=== PATIENT | female | born 1975 | race Caucasian/White ===

== ENCOUNTER 2016-07-22 18:46 | Inpatient (IN) | payer OTHER ==
--- NOTE | ~2016-07-22 | PN ---
Unit #: [id number] #: [id number] Patient: NATANAEL OLVERA [id number] [facility] [address] [place] [address] [id number] MR#: [id number] NAME: NATANAEL OLVERA ROOM: 73 Age: 40 Sex: F Admission Date: 07/22/2016 : 1975 Attending Physician: Bobby Ybarra M.D. Admitting Physician: Marcelo Li PROGRESS NOTES DATE 07/24/2016 SUBJECTIVE UPDATE This is a 40-year-old white female who comes into the hospital with issues of substance abuse and related detox. The patient reports today overall the symptoms are better. She still complains of feeling somewhat unsteady on her feet, and there is still a mild tremor noted in her hands, but she states her appetite is has been better and she did sleep somewhat better last night with the medication. The patient's mood also seems better. She is less depressed, anxious, continuing to deny any SI. Still having some mild complaints of headaches, aches and pains, and GI disturbance. Overall, the patient says all symptoms seem to be improving. Vital signs noted to have a slightly elevated blood pressure of 135/84 with a pulse of 70 and respiratory rate of 16. The patient compliant with care per staff. MENTAL STATUS EXAMINATION General Appearance: This is a moderately groomed white female, improving eye contact. Speech was clear and coherent with normal prosody with tremor in both hands still noted. Mood was "better, less depressed, anxious with a congruent affect." Thought process and content are grossly organized and linear, and overt psychosis. No SI or HI are reported or elicited. The patient's memory was grossly intact. Associations were normal. Cognitive functioning is at baseline. Insight and judgment are improving. Associations are normal. ASSESSMENT AND RECOMMENDATIONS Continue the patient's admission for safety and stabilization for ongoing detox issues. The patient appears to be showing good progress, and we will maintain the treatment program for now (1) __ disposition in the near future. The patient's progress is to be continued and maintained. Community resources discussed with the patient (2) ___, and she is to make determinations prior to discharge. Dictated by... Bobby Ybarra M.D. CAMILLA/joanna TD: 07/26/2016 09:52 Unit #: [id number] #: [id number] Patient: ANT OLVERABRIELLE JOB #: [id number] GEOV[facility]NA PROGRESS NOTES Page 1 of 1 X Bobby Ybarra MD PROGRESS NOTE
--- NOTE | ~2016-07-22 | DS ---
Unit #: [id number] #: [id number] Patient: NATANAEL OLVERA [id number] [place] [address] [id number] I MR#: [id number] NAME: NATANAEL OLVERA ROOM: [facility] Age: 40 Sex: F Admission Date: 07/22/2016 : 1975 Discharge Date: 07/25/2016 Attending Physician: Bobby Ybarra M.D. DISCHARGE SUMMARY REASON FOR ADMISSION Alcohol dependency and significant depression issues. DIAGNOSTIC STUDIES The patient had routine blood work done which included a CMP which showed glucose slightly low at 61 on admission and BUN of 6, and creatinine 0.5 respectively. AST was elevated at 117, ALT at 76 in keeping with her recent alcohol use. TSH elevated at 5.61, free T4 slightly low at 0.55. Beta HCG was negative. CBC was grossly within normal parameters with the exception of the MCV slightly elevated at 98.2. RPR was nonreactive. Urine toxicology was positive for benzodiazepines. Urinalysis was positive for trace leukocytes 0.2 urobilinogen, but no other signs of bacterial infection or abnormalities. HOSPITAL COURSE The patient was admitted for safety and stabilization for issues with alcohol dependency and major depression. The patient apparently in the original evaluation had made comments of a suicidal nature talking about just drinking herself to upon admission to the hospital and those rapidly resolved and there was no active SI during this entire admission. The patient was still complaining of depression but her focus is more on her alcohol use, apparently this had been going on for several years and was only escalating and she was feeling hopeless about it. The patient was placed on appropriate detox protocol and tolerated it well. She had symptoms of diaphoresis, tremors, restlessness, upset stomach, poor sleep, depression and anxiety, as well as aches and pains and restless legs in addition to others and all of these symptoms resolved over the hospitalization and she responded well to the treatment protocol. The patient had made mention of depression during her hospitalization but did not feel motivated for starting medications until the very last day when she was being detoxed and it was recommended that she follow up in IOP program to have that better managed as she was about to be discharged and was not appropriate to start a new medication at this point without the patient being under my care for additional followup and this can be tended to, of course, in the outpatient program under appropriate guidance and she agreed. The patient was given trazodone 100 mg at bedtime to aid with sleep for which she responded well in addition to the other detox medications but no other medications were started during this hospitalization. Overall, at the time of discharge, the patient was felt to have reached maximum Unit #: [id number] #: [id number] Patient: NATANAEL OLVERA benefit for admission. Plan for her to go home with family and follow up outpatient with IOP program and/or other community psych CD resources with sobriety encouraged. DISCHARGE DIAGNOSES Nash I Alcohol dependency with withdrawal. Major depressive disorder, moderate. PCOS. Nash II Nash III Nash IV Nash V DISCHARGE FOLLOW UP CARE Will be through the CD/IOP program at [facility] vs community resources. DISCHARGE MEDICATIONS None. CONDITION AT DISCHARGE Improving. PROGNOSIS Guarded given the patient's continued drinking and history of noncompliance. DIET AND ACTIVITY Diet is regular. Activity is as tolerated with sobriety encouraged. Dictated by... Bobby Ybarra M.D. CAMILLA/susan TD: 07/25/2016 12:39 JOB #: [id number] DISCHARGE SUMMARY Page 1 of 1 X Bobby Ybarra MD X DISCHARGE SUMMARY
--- NOTE | ~2016-07-22 | PA ---
Unit #: [id number] #: [id number] Patient: NATANAEL OLVERA [id number] [place] [address] [id number] Omer MR#: [id number] NAME: NATANAEL OLVERA ROOM: P173 Age: 40 Sex: F Admission Date: 07/22/2016 : 1975 Date of Assessment: 07/23/2016 Attending Physician: Bobby Ybarra M.D. Admitting Physician: Bobby Ybarra M.D. PSYCHIATRIC ASSESSMENT DATE OF SERVICE 07/23/2016. LOCATION [facility], room #173, bed #2. INFORMANTS The patient and chart both seem reliable. CHIEF COMPLAINT "I can't stop using alcohol before I kill myself." HISTORY OF PRESENT ILLNESS This is a 40-year-old white female with a longstanding history of alcohol dependency going back "many many years," who has never been to previous detox issues before. The patient reports now because of mounting issues in her life including the of family, loss of her children, but the family having to take care of them because of her continued substance abuse, unemployment etc. Overall, the patient denied any other substances of abuse on a regular basis, but has used amphetamines in the past. The patient was notably positive for vague SI when she was seen by initial evaluated in the emergency services and now is denying them, but does report significant issues with depression. The patient at this time open to care options and treatment and is reporting problems with low energy aches and pains, feeling nauseous for sleep, disruption of GI tract. No diarrhea or vomiting yet, tremors and diaphoresis. Staff reported she has been compliant with care thus far. No behavioral issues on the unit. PAST PSYCHIATRIC HISTORY Nothing to speak up. No previous psychiatric care inpatient around, no history of medications per patient. No history of true SI or suicidal actions. No history of HI. No history of psychosis. FAMILY HISTORY Significant for chemical dependency in both parents as well as brother who by overdose on fentanyl. SOCIAL HISTORY The patient is unemployed and single. Children currently in the care of her surviving brother. Support is limited. MEDICAL HISTORY Significant for PCOS which she has not being treated for. Unit #: [id number] #: [id number] Patient: NATANAEL OLVERA MEDICATION HISTORY None. ALLERGIES Include no known drug allergies. SUBSTANCE ABUSE HISTORY As noted above. No previous treatment inpatient around per patient. No history of significant withdrawal symptoms beyond shakes or tremors. No history of seizures and history of medical complications. MENTAL STATUS EXAMINATION General appearance is a limitedly groomed white female, appears older than stated age, fairly cooperative and responsive to the interview process with moderate eye contact. Speech was clear and coherent with normal prosody. Mood was dysphoric and depressed with a blunted affect. Thought process and content were grossly organized and linear. No overt evidence of psychosis. No active SI or HI at this time. The patient's memory was grossly intact. Associations were normal. Cognitive function was at baseline. She is alert and oriented x4. Insight and judgment are limited. ASSETS AND LIABILITIES Assets include, has 2 children as she was wanting to regain custody of and care for. Liabilities include continued substance abuse. No previous exposure with detox, unemployment, ongoing alcohol dependency. ADMITTING DIAGNOSES 1. Alcohol dependency with withdrawal. 2. Major depressive disorder, recurrent, moderate. 3. Polycystic ovary syndrome. PSYCHIATRIC PLAN To continue the patient's admission in the safe and secured environment for alcohol detox. The proper protocol in place as well as monitoring her mood and most likely substance related versus chronic major depressive issues per the patient's report, even though she has never had history of it before. She has had some severe depressive symptoms for over several years that include poor motivation, energy, and anhedonia, poor ADL management and hopelessness. Treatment goals will be resolution of these symptoms in a safe controlled environment. 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 Estimated length of stay approximately 5 days. Dictated by... Bobby Ybarra M.D. CAMILLA/moo TD: 07/23/2016 12:57 JOB #: [id number] Unit #: [id number] #: [id number] Patient: NATANAEL OLVERA PSYCHIATRIC ASSESSMENT Page 1 of 1 X Bobby Ybarra MD PSYCHIATRIC ASSESSMENT
--- NOTE | ~2016-07-22 | HP ---
Unit #: [id number] #: [id number] Patient: NATANAEL OLVERA [id number] [place] [address] [id number] I MR#: [id number] NAME: NATANAEL OLVERA ROOM: 73 Age: 40 Sex: F Admission Date: 07/22/2016 : 1975 Attending Physician: Bobby Ybarra M.D. Admitting Physician: Bobby Ybarra M.D. HISTORY AND PHYSICAL HISTORY OF PRESENT ILLNESS The patient is a 40-year-old female admitted to [facility] on 07/22/2016 for suicidal ideations and to detox from alcohol. PAST MEDICAL HISTORY PCOS PAST SURGICAL HISTORY The patient denies. SOCIAL HISTORY The patient is unemployed. She lives with her mother. She smokes one pack of cigarettes daily. She drinks alcohol daily and uses Adderall daily. FAMILY MEDICAL HISTORY Noncontributory. ALLERGIES No known drug allergies. CURRENT MEDICATIONS The patient is not on any home medications. REVIEW OF SYSTEMS CONSTITUTIONAL: No fever or chills. HEENT: Denies any sore throat, ear pain or runny nose. CARDIOVASCULAR: Denies chest pain, irregular heart rhythm or palpitations. CHEST: Denies shortness of breath or cough. No hemoptysis. GASTROINTESTINAL: Denies nausea, vomiting, diarrhea or chronic constipation. ENDOCRINE: Denies history of increased thirst or urination. No recent significant weight loss or gain. GENITOURINARY: Denies dysuria, frequency, or hematuria. SKIN: Denies any rashes. HEMATOLOGIC: Denies history of increased bleeding or bruising. MUSCULOSKELETAL: Denies any hot, swollen joints. No generalized muscle pain. NEUROLOGIC: Denies problems with vision or speech. No frequent, severe headaches. No numbness, tingling or weakness in any extremities. Denies loss of bladder or bowel control. Unit #: [id number] #: [id number] Patient: NATANAEL OLVERA PHYSICAL EXAM GENERAL: She is awake, alert and oriented in no acute distress. VITAL SIGNS: Temperature 98.4, heart rate 78, respiration 22, blood pressure 120/73. HEIGHT: 5'3". WEIGHT: 130 pounds. SKIN: Warm and dry without rash or lesion. HEENT: Normocephalic. TMs not viewed. Oral and nasal passages clear. Conjunctivae clear. PERRLA. EOMs intact. NECK: Supple without lymphadenopathy or thyromegaly. HEART: Regular rate and rhythm without murmur. LUNGS: Clear. ABDOMEN: Soft, nontender. : Not done. EXTREMITIES: No evidence of cyanosis, clubbing or edema. Moves all without focal deficit. NEUROLOGICAL: Grossly within normal limits. Cranial Nerves: II: Visual kang are intact. III, IV AND : Extraocular movements are intact. Pupils are equal, round and reactive to light. V: Facial sensation is grossly normal. VII: Facial movements and expression are normal. VIII: Auditory acuity grossly intact. IX, X: Uvula is midline. Phonation is normal. XI: Patient shrugs shoulders and turns head normally. XII: Tongue protrudes in the midline. Sensory and Motor Function: Sensory and motor sensation is grossly normal. Motor: moves all extremities well. IMPRESSION 1. Psychiatric admission. 2. Alcohol addiction. 3. PCOS. RECOMMENDATIONS Psychiatric per psychiatrist. MEDICAL: No contraindication to participate in facility activities. MEDICAL PROGNOSIS Good. MEDICAL CONDITION Stable. Dictated by... Bill Marie/adan TD: 07/24/2016 00:01 JOB #: [id number] Unit #: [id number] #: [id number] Patient: NATANAEL OLVERA HISTORY AND PHYSICAL Page 1 of 1 X RAYNE KEARNEY APRN HISTORY AND PHYSICAL
[2016-07-23 10:46] LABS: BASOPHIL% 0.4 % (0-2.5); EOSINOPHIL# 0.1 X10e3 (0-0.7); EOSINOPHIL% 1.6 % (0.0-7.0); HEMATOCRIT 42.3 % (35.0-45.0); HEMOGLOBIN 14.2 gm/dL (12.0-16.0); LYMPHOCYTE# 1.7 X10e3 (1.0-3.5); LYMPHOCYTE% 36.7 % (17.0-45.0); MEAN CELL VOLUME 98.2 FL (83-96); MEAN CORPUSCULAR HEMOGLOBIN 33.1 PG (28-34); MEAN CORPUSCULAR HGB CONC 33.7 g/dL (30-36); MEAN PLATELET VOLUME 7.8 FL (6.5-11.5); MONOCYTE# 0.5 X10e3 (0-1.0); NEUTROPHIL# 2.3 X10e3 (1.5-7.1); NEUTROPHIL% 50.3 % (40-75); PLATELET COUNT 167 X10e3 (140-420); RED CELL DISTRIBUTION WIDTH 13.8 % (11.0-15.5); WHITE BLOOD COUNT 4.6 X10e3 (4.0-10.5)
[2016-07-23 10:49] LABS: DIFF IND NO
[2016-07-23 11:24] LABS: THYROID STIMULATING HORMONE 5.61 uIU/ml (0.34-5.60)
[2016-07-23 11:30] LABS: FREE THYROXIN (T4) 0.55 ng/dL (0.58-1.64)
[2016-07-23 12:09] LABS: ALBUMIN SERUM 4.2 g/dL (3.5-5.0); BILIRUBIN,TOTAL 1.3 mg/dL (0.2-2.0); CALCIUM SERUM 9.6 mg/dL (8.4-10.2); CREATININE SERUM 0.5 mg/dL (0.6-1.4); GLOM FILT RATE Estimated 121.9 mL/min (>60); POTASSIUM 4.6 mmol/L (3.5-5.1); PROTEIN TOTAL SERUM 7.3 g/dL (6.0-8.3)
[2016-07-24 12:30] LABS: URINE APPEARANCE CLEAR; URINE BILIRUBIN NEG (NEG); URINE BLOOD NEG (NEG); URINE COLOR YELLOW; URINE GLUCOSE NEG (NEG); URINE KETONE NEG (NEG); URINE LEUKOCYTE ESTERASE TRACE (NEG); URINE NITRATE NEG (NEG); URINE PH 6.5 (5-8); URINE PROTEIN NEG (NEG); URINE SPECIFIC GRAVITY 1.005 (1.003-1.035); URINE UROBILINOGEN 0.2 MG/DL (NEG)
[2016-07-24 12:35] LABS: URINE BACTERIA AUWI NEG (NEGATIVE); URINE SQUAMOUS EPITHELIAL CELL NONE SEEN /[HPF]; UWBCS1 AUWI 0-2 (0-5)
[2016-07-24 12:45] LABS: AMPHETAMINE NEG (NEG); BARBITURATES NEG (NEG); BENZODIAZEPINES POS (NEG); COCAINE NEG (NEG); MARIJUANA NEG (NEG); OPIATES NEG (NEG); TRICYCLIC ANTIDEPRESSANTS NEG (NEG); U METHADONE NEG (NEG)
== END 2016-07-25 13:45 | disposition home or self-care (01) | DRG 897 ==
LOC: P1E 18:46
PROVIDERS: Psychiatry & Neurology Psychiatry
PROC: HZ2ZZZZ Detoxification Services for Substance Abuse Treatment (ICD-10-PCS; principal; 2016-07-22)
DX: F10.239 Alcohol dependence with withdrawal, unspecified (principal); F33.1 Major depressive disorder, recurrent, moderate; E28.2 Polycystic ovarian syndrome
CPT/HCPCS: 80053; 80307; 81003; 84439; 84443; 84703; 85025; 86592

== ENCOUNTER 2016-09-16 22:00 | Inpatient (IN) | payer OTHER ==
--- NOTE | ~2016-09-16 | PN ---
Unit #: [id number] #: [id number] Patient: NATANAEL OLVERA [id number] [facility] [address] [place] [address] [id number] I MR#: [id number] NAME: NATANAEL OLVERA ROOM: P207 Age: 41 Sex: F Admission Date: 09/17/2016 : 1975 Attending Physician: Em Casanova M.D. Admitting Physician: Em Casanova M.D. Primary Care Physician: Primary Care Physician Joahna AUSTIN PROGRESS NOTES DATE OF SERVICE: 09/23/2016 SUBJECTIVE Ms. Olvera is a 41-year-old white female, who was seen today and chart was reviewed and case was discussed with the staff. She has been anxious, withdrawn, and rather seclusive to herself, though appears to be doing much and has not had any kind of seizure activity. Meanwhile, she has been taking the medications and tolerating them fairly well with no reported side effects. MENTAL STATUS EXAMINATION Middle-aged white female who was casually dressed with fair personal hygiene, appears to be in no acute distress or discomfort. She was awake and alert with intact orientation. Her mood was anxious with a congruent affect. She denies any suicidal or homicidal ideation. Her insight and judgment remain slightly impaired. TREATMENT PLAN 1. We will continue on her current medications and treatment protocol. We will monitor her response to the medications and make further adjustments as needed. 2. We will continue to follow up. Dictated by... Marcelo Shirley/moo TD: 09/24/2016 00:33 JOB #: [id number] GEOVANNA PROGRESS NOTES Page 1 of 1 X Em Casanova MD PROGRESS NOTE
--- NOTE | ~2016-09-16 | PN ---
Unit #: [id number] #: [id number] Patient: NATANAEL OLVERA [id number] [facility] [address] [place] [address] [id number] I MR#: [id number] NAME: NATANAEL OLVERA ROOM: P20 Age: 41 Sex: F Admission Date: 09/17/2016 : 1975 Attending Physician: Em Casanova M.D. Admitting Physician: Em Casanova M.D. Primary Care Physician: Primary Care Physician Johana UMANA NOTES DATE 09/22/2016 DISCUSSION Ms. Olvera is a 41-year-old white female who was seen today and chart was reviewed and case was discussed with the staff. She has been anxious, restless, withdrawn and apparently she had a three minute long seizure yesterday which appear to be withdrawal seizure as the patient is not epileptic and does not have any history of seizures and she stated that she was feeling better and was able to come off of the detox protocol. However, she stated that she then started feeling shaky and tremulous in the therapy group and soon afterwards she had a three minute long tonic clonic seizure and since then has been placed on seizure precaution. Meanwhile, she has been taking the medications and tolerating them fairly well. MENTAL STATUS EXAMINATION Middle-aged white female who was casually dressed with fair personal hygiene, appears to be in no acute distress or discomfort. She was awake and alert on interaction with intact orientation. Her mood was anxious with congruent affect. She denies any suicidal or homicidal ideations. Her insight and judgement remains slightly impaired. TREATMENT PLAN 1. We will continue her on her current medications and treatment protocol. We will monitor her response and make further adjustments as needed. 2. We will continue to follow up. Dictated by... Marcelo Shirley/adan TD: 09/25/2016 03:15 JOB #: [id number] Unit #: [id number] #: [id number] Patient: NATANAEL OLVERA PROGRESS NOTES Page 1 of 1 X Em Casanova MD X PROGRESS NOTE
--- NOTE | ~2016-09-16 | PN ---
Unit #: [id number] #: [id number] Patient: NATANAEL OLVERA [id number] [facility] [address] [place] [address] [id number] I MR#: [id number] NAME: NATANAEL OLVERA ROOM: P207 Age: 41 Sex: F Admission Date: 09/17/2016 : 1975 Attending Physician: Em Casanova M.D. Admitting Physician: Em Casanova M.D. Primary Care Physician: Primary Care Physician Johana AUSTIN PROGRESS NOTES DATE 09/18/2016 SUBJECTIVE Ms. Olvera is a 41-year-old white female, who was seen today and chart was reviewed and case was discussed with the staff. She remains anxious, withdrawn, unkempt, disorganized, and seclusive to herself and appears to be in some distress or discomfort has been taking the medications and tolerating them fairly well with no reported side effects. MENTAL STATUS EXAMINATION Middle-aged white female, who was casually dressed with fair personal hygiene, appears to be in no acute distress or discomfort. She was awake and alert on interaction with intact orientation. Her mood was anxious and depressed with a congruent affect. She denies any suicidal or homicidal ideation. Her insight and judgment remained slightly impaired. TREATMENT PLAN 1. We will continue on her current medications and treatment protocol. We will monitor her response to the medications and make further adjustments as needed. 2. We will continue to follow up. Dictated by... Marcelo Shirley/moo TD: 09/20/2016 01:26 JOB #: [id number] [facility] PROGRESS NOTES Page 1 of 1 X Em Casanova MD PROGRESS NOTE
--- NOTE | ~2016-09-16 | DS ---
Unit #: [id number] #: [id number] Patient: NATANAEL OLVERA [id number] [facility] [address] [place] [address] [id number] I MR#: [id number] NAME: NATANAEL OLVERA ROOM: [facility] Age: 41 Sex: F Admission Date: 09/17/2016 : 1975 Discharge Date: 09/25/2016 Attending Physician: Em Casanova M.D. Primary Care Physician: Primary Care Physician No DISCHARGE SUMMARY IDENTIFYING DATA Ms. Olvera is a 41-year-old, single, white female who is a resident of [place], [place] and was self-referred to the hospital on a voluntary basis. DISCHARGE DIAGNOSES Psychiatric: Alcohol dependence, moderate and acute withdrawals; alcohol-induced mood disorder. Medical: Polycystic ovarian disease. Stressors: Moderate psychosocial stressors. HISTORY OF PRESENT ILLNESS Please see initial psychiatric evaluation for details. PAST PSYCHIATRIC HISTORY Please see initial psychiatric evaluation for details. PAST MEDICAL HISTORY Please see initial psychiatric evaluation for details. HOSPITAL COURSE The patient was admitted to the adult chemical dependency unit at [facility] and was oriented to the hospital environment. Routine p.r.n. medications were initiated, and she was started on the alcohol detox protocol and was seen to be having some difficult detox; however, she was able to come out of the detox and as we were planning to discharge the patient in next 24 hours, she had a 3-minute long seizure and as such, discharge planning was cancelled and she was put on seizure precautions. They closely monitored for the next 3 days and was able to go through it without having any further seizure activity and was functioning very well, and was awake and alert, and oriented and going to therapy groups and socializing and was wanting to go home and as such, it was decided that she will be discharged home and will continue treatment on an outpatient basis. DISCHARGE MEDICATIONS None. DISCHARGE CONDITION Stable. PROGNOSIS Fair. Unit #: [id number] #: [id number] Patient: NATANAEL OLVERA Dictated by... Marcelo Shirley/moo TD: 09/25/2016 13:42 JOB #: [id number] DISCHARGE SUMMARY Page 1 of 1 X Em Casanova MD DISCHARGE SUMMARY
--- NOTE | ~2016-09-16 | PN ---
Unit #: [id number] #: [id number] Patient: NATANAEL OLVERA [id number] [facility] [address] [place] [address] [id number] I MR#: [id number] NAME: NATANAEL OLVERA ROOM: P207 Age: 41 Sex: F Admission Date: 09/17/2016 : 1975 Attending Physician: Em Casanova M.D. Admitting Physician: Em Casanova M.D. Primary Care Physician: Primary Care Physician Johana AUSTIN PROGRESS NOTES DATE 09/20/2016 DISCUSSION Ms. Olvera is a 41-year-old white female who was seen today and chart was reviewed and case was discussed with the staff. She was seen to be anxious, withdrawn, seclusive to herself and she reports that she is feeling somewhat better than yesterday but still has been having quite a bit detox symptoms. She has been taking the medications and tolerating them fairly well with no reported side effects. MENTAL STATUS EXAMINATION Young white female who was casually dressed with fair personal hygiene and appears to be in no acute distress or discomfort. She was awake and alert on interaction with intact orientation. Her mood was affect. She denies any suicidal or homicidal ideation. Her insight and judgement remains slightly impaired. TREATMENT PLAN 1. Will continue on current treatment protocol. Will monitor her response to the medications and make further adjustments as needed. 2. Will continue to follow up. Dictated by... Marcelo Shirley/jonh TD: 09/21/2016 20:10 JOB #: [id number] Unit #: [id number] #: [id number] Patient: NATANAEL OLVERA PROGRESS NOTES Page 1 of 1 X Em Casanova MD PROGRESS NOTE
--- NOTE | ~2016-09-16 | HP ---
Unit #: [id number] #: [id number] Patient: NATANAEL OLVERA [id number] [place] [address] [id number] MR#: [id number] NAME: NATANAEL OLVERA ROOM: P20 Age: 41 Sex: F Admission Date: 09/17/2016 : 1975 Attending Physician: Em Casanova M.D. Admitting Physician: Em Casanova M.D. Primary Care Physician: Primary Care Physician No HISTORY AND PHYSICAL HISTORY OF PRESENT ILLNESS The patient is a 41-year-old female admitted to [address] [place] [address] on 09/17/2016 for alcohol abuse and suicidal ideation. PAST MEDICAL HISTORY 1. PCOS. 2. Alcohol abuse. 3. Nicotine dependence. PAST SURGICAL HISTORY The patient denies. SOCIAL HISTORY She is unemployed. She lives with her mother. She smokes one pack of cigarettes daily and drinks a fifth of vodka per day. FAMILY MEDICAL HISTORY Noncontributory. ALLERGIES No known drug allergies. CURRENT MEDICATIONS The patient is not on any home medications. REVIEW OF SYSTEMS CONSTITUTIONAL: No fever or chills. HEENT: Denies any sore throat, ear pain or runny nose. CARDIOVASCULAR: Denies chest pain, irregular heart rhythm or palpitations. CHEST: Denies shortness of breath or cough. No hemoptysis. GASTROINTESTINAL: Denies nausea, vomiting, diarrhea or chronic constipation. ENDOCRINE: Denies history of increased thirst or urination. No recent significant weight loss or gain. GENITOURINARY: Denies dysuria, frequency, or hematuria. SKIN: Denies any rashes. HEMATOLOGIC: Denies history of increased bleeding or bruising. MUSCULOSKELETAL: Denies any hot, swollen joints. No generalized muscle pain. NEUROLOGIC: Denies problems with vision or speech. No frequent, severe headaches. No numbness, tingling or weakness in any extremities. Denies loss of bladder or bowel control. Unit #: [id number] #: [id number] Patient: NATANAEL OLVERA PHYSICAL EXAM GENERAL: She is awake, alert and oriented in no acute distress. VITAL SIGNS: Temperature 98.5, heart rate 91, respiration 18, blood pressure 139/84. HEIGHT: 5'3". WEIGHT: 133 pounds. SKIN: Warm and dry without rash or lesion. HEENT: Normocephalic. TMs not viewed. Oral and nasal passages clear. Conjunctivae clear. PERRLA. EOMs intact. NECK: Supple without lymphadenopathy or thyromegaly. HEART: Regular rate and rhythm without murmur. LUNGS: Clear. ABDOMEN: Soft, nontender. : Not done. EXTREMITIES: No evidence of cyanosis, clubbing or edema. Moves all without focal deficit. NEUROLOGICAL: Grossly within normal limits. Cranial Nerves: II: Visual kang are intact. III, IV AND : Extraocular movements are intact. Pupils are equal, round and reactive to light. V: Facial sensation is grossly normal. VII: Facial movements and expression are normal. VIII: Auditory acuity grossly intact. IX, X: Uvula is midline. Phonation is normal. XI: Patient shrugs shoulders and turns head normally. XII: Tongue protrudes in the midline. Sensory and Motor Function: Sensory and motor sensation is grossly normal. Motor: moves all extremities well. IMPRESSION 1. Psychiatric admission. 2. PCOS. 3. Nicotine dependence. 4. Alcohol abuse. RECOMMENDATIONS Psychiatric per psychiatrist. MEDICAL: No contraindication to participate in facility activities. MEDICAL PROGNOSIS Good. MEDICAL CONDITION Stable. Dictated by... Bill Marie/adan TD: 09/18/2016 06:12 JOB #: [id number] Unit #: [id number] #: [id number] Patient: NATANAEL OLVERA HISTORY AND PHYSICAL Page 1 of 1 X RAYNE KEARNEY APRN HISTORY AND PHYSICAL
--- NOTE | ~2016-09-16 | PN ---
Unit #: [id number] #: [id number] Patient: NATANAEL OLVERA [id number] [facility] [address] [place] [address] [id number] I MR#: [id number] NAME: NATANAEL OLVERA ROOM: P207 Age: 41 Sex: F Admission Date: 09/17/2016 : 1975 Attending Physician: Em Casanova M.D. Admitting Physician: Em Casanova M.D. Primary Care Physician: Primary Care Physician Johana AUSTIN PROGRESS NOTES DATE 09/19/2016 DISCUSSION Ms. Olvera is a 41-year-old white female who was seen today and chart was reviewed and case was discussed with the staff. She was laying in her bed and describes herself to be in distress and discomfort and she had detox symptoms still not feeling much better and having several different detox symptoms. Meanwhile, she has been cooperative with treatment recommendations as she has been taking the medications and tolerating them fairly well with no reported side effects. MENTAL STATUS EXAMINATION Middle-aged white female who was casually dressed with fair personal hygiene, appears to be in distress and discomfort. She was awake and alert on interaction with intact orientation. Her mood was anxious with congruent affect. She denies any suicidal or homicidal ideations. Also, denies any auditory or visual hallucinations. Her insight and judgement remains slightly impaired. TREATMENT PLAN 1. We will continue her on her current treatment protocol. We will monitor her response and make further adjustments as needed. 2. We will continue to follow up. Dictated by... Marcelo Shirley/adan TD: 09/20/2016 00:44 JOB #: [id number] Unit #: [id number] #: [id number] Patient: NATANAEL OLVERA PEAROBERTO CARLOS PROGRESS NOTES Page 1 of 1 X Em Casanova MD PROGRESS NOTE
--- NOTE | ~2016-09-16 | TN ---
Unit #: [id number] #: [id number] Patient: [facility]HAN [id number] [facility] [address] [place] [address] [id number] I MR#: [id number] NAME: NATANAEL KHAN ROOM: P207 Age: 41 Sex: F Admission Date: 09/17/2016 : 1975 Discharge Date: 09/25/2016 Attending Physician: Em Casanova M.D. Primary Care Physician: Primary Care Physician No LOC TRANSFER NOTE DATE OF SERVICE: 09/26/2016 DATE OF SERVICE 09/26/2016. HISTORY OF PRESENT ILLNESS Ms. Khan is a 41-year-old single white female, who is a resident of [place], [place], and was stepped down to the outpatient treatment program from the adult inpatient psychiatric unit, where she was hospitalized under my care from 09/17/2016 to 09/25/2016 and was brought to the hospital with alcohol dependence and was detoxed and did have a history of withdrawal seizures and as such had a rather lengthy stay in the hospital, but was feeling much better and was discharged home. On evaluation by me today, the patient still seen to be anxious, restless, and reports that she has not relapsed and has not relapsed since discharge from the program and that she still has been having some significant cravings, but so far she has been able to overcome the temptations. She does report some persistent anxiety, but denies any suicidal ideations, intent, or plan. SUBSTANCE ABUSE HISTORY The patient reports history of alcohol, cannabis, cocaine, and amphetamine abuse in the past, but alcohol has been her drug of choice as she reports that she has been drinking ever since she was 15 years old and was drinking a fifth of vodka a day before she came to the hospital. PAST PSYCHIATRIC HISTORY The patient has had a history of inpatient chemical dependency treatment at [facility], and currently, she is not active in any treatment program, is not seeing a psychiatrist, and is not taking any psychotropic medications. PAST MEDICAL HISTORY Significant for history of polycystic ovarian disease. ALLERGIES No known medication allergies. PERSONAL AND SOCIAL HISTORY A 41-year-old white female, who reports that she is single, unemployed, and lives at home with her mother and has fairly decent social support system. Unit #: [id number] #: [id number] Patient: NATANAEL KHAN MENTAL STATUS EXAMINATION Middle-aged white female, who was casually dressed with fair personal hygiene and appears to be in no acute distress or discomfort. She was awake and alert on interaction with intact orientation. Her mood was anxious with a congruent affect. She denies any suicidal or homicidal ideations and also denies any auditory or visual hallucinations. Her insight and judgment remain slightly impaired. DIAGNOSTIC IMPRESSION Psychiatric: Alcohol dependence, moderate and alcohol-induced mood disorder. Medical: None. Stressors: Moderate psychosocial stressors. Medical: Polycystic ovarian disease. Stressors: Moderate psychosocial stressors. TREATMENT PLAN 1. The patient has presented with a history of substance abuse and mood disorder. We will recommend enrolling her into the outpatient treatment program and maintaining her on her current medications. We will monitor her response and make further adjustments as needed. 2. Supportive therapy was provided to the patient. ESTIMATED LENGTH OF STAY 14 to 21 days. ABILITY TO HELP SELF Limited. WILLINGNESS TO HELP SELF The patient appears to be willing to help self. STRENGTHS 1. Communicative. 2. Cooperative. PROBLEMS 1. Chronic dysphoric symptoms. 2. Chronic chemical dependency. 3. Poor social support system. DISCHARGE CRITERIA This will be contingent upon the patient's ability to show resolution of her depression and anxiety as well as her ability to stay safe to herself, particularly after discharge from the program. Dictated by... Em Casanova M.D. KARELY/moo TD: 09/27/2016 18:55 JOB #: [id number] Unit #: [id number] #: [id number] Patient: NATANAEL KHAN LOC TRANSFER NOTE Page 1 of 1 X Em Casanova MD X LOC TRANSFER NOTE
--- NOTE | ~2016-09-16 | PN ---
Unit #: [id number] #: [id number] Patient: NATANAEL OLVERA [id number] [facility] [address] [place] [address] [id number] I MR#: [id number] NAME: NATANAEL OLVERA ROOM: P207 Age: 41 Sex: F Admission Date: 09/17/2016 : 1975 Attending Physician: Em Casanova M.D. Admitting Physician: Em Casanova M.D. Primary Care Physician: Primary Care Physician Johana AUSTIN PROGRESS NOTES DATE September 21, 2016 DISCUSSION Ms. Olvera is a 41-year-old white female, who was seen today and chart was reviewed and the case was discussed with the staff. She has been anxious, withdrawn, but reports doing much better than yesterday, and appears to be coming out of the detox without any complications, and has been showing improvement in her depressive symptoms as well. MENTAL STATUS EXAMINATION Middle-aged white female, who was casually dressed with fair personal hygiene and appears to be in no acute distress or discomfort. The patient was awake and alert on interaction with intact orientation. Her mood was anxious with a congruent affect. The patient denies any suicidal or homicidal ideations. Her insight and judgment remain slightly impaired. TREATMENT PLAN 1. We will continue her on her current medications and treatment protocol, and will monitor her response to the medications, and make further adjustments as needed. 2. We will continue to followup. Dictated by... Marcelo Shirley/susan TD: 09/22/2016 10:01 JOB #: [id number] Unit #: [id number] #: [id number] Patient: NATANAEL OLVERA PROGRESS NOTES Page 1 of 1 X Em Casanova MD PROGRESS NOTE
--- NOTE | ~2016-09-16 | PA ---
Unit #: [id number] #: [id number] Patient: NATANAEL KHAN [id number] [facility] [address] [place] [address] [id number] I MR#: [id number] NAME: NATANAEL KHAN ROOM: P207 Age: 41 Sex: F Admission Date: 09/17/2016 : 1975 Date of Assessment: Attending Physician: Em Casanova M.D. Admitting Physician: Em Casanova M.D. Primary Care Physician: Primary Care Physician No PSYCHIATRIC ASSESSMENT DATE OF SERVICE 09/17/2016. IDENTIFYING DATA Ms. Khan is a 41-year-old single white female, who is a resident of [place], [place], and was self-referred to the hospital on a voluntary basis. CHIEF COMPLAINT "I need help." HISTORY OF PRESENT ILLNESS Ms. Khan is a 41-year-old white female with history of substance abuse and dependence, who was self-referred to the hospital stating that she has been using drugs and that she needs help and reports that she is unemployed and that she is currently living with her mother and her brother overdosed in 10/2015 and her children are not in her care and she reports minimal support system, increasing depression, disturbed sleep, psychomotor retardation, feelings of hopelessness and helplessness, and reports has history of making suicidal statements in the past regarding drinking herself to . The patient denies any current suicidal ideations. SUBSTANCE ABUSE HISTORY The patient reports history of experimentation with cocaine and cannabis, but reports alcohol to be drug of choice. She reports that she has been drinking since she was 15 years old and she has been drinking heavily and regularly and describes alcohol to be her drug of choice. PAST PSYCHIATRIC HISTORY The patient has had history of inpatient and outpatient psychiatric and chemical dependency treatment, though review of the medical records indicate currently she is not active in any treatment program, is not seeing a psychiatrist, and not taking any psychotropic medications. PAST MEDICAL HISTORY Polycystic ovarian disease. ALLERGIES No known medication allergies. CURRENT MEDICATIONS None. Unit #: [id number] #: [id number] Patient: NATANAEL KHAN PERSONAL AND SOCIAL HISTORY A 41-year-old white female, who reports that she is single, unemployed, and lives at home with her mother and has poor social support system. MENTAL STATUS EXAMINATION Middle-aged white female who was casually dressed with fair personal hygiene, appears to be in no acute distress or discomfort. She was awake and alert on interaction with intact orientation to time, place, and person. Her mood was anxious and depressed with a congruent affect. Her speech was slow and goal directed. She denies any suicidal or homicidal ideations and also denies any auditory or visual hallucinations. Her insight and judgment remain slightly impaired. DIAGNOSTIC IMPRESSION Psychiatric: Alcohol dependence, moderate and acute withdrawals; alcohol-induced mood disorder. Medical: Polycystic ovarian disease. Stressors: Moderate psychosocial stressors. TREATMENT PLAN 1. The patient has presented with a history of mood disorder and substance abuse and has been decompensating and will need inpatient hospitalization for detoxification, safety, and stabilization. We will start her back on her home medications. We will adjust the medications and monitor response. 2. Supportive therapy was provided to the patient. 3. Safe, structured, and nourishing environment will be provided. ESTIMATED LENGTH OF STAY 5 to 7 days. ABILITY TO HELP SELF Limited. WILLINGNESS TO HELP SELF The patient appears to be willing to help self. STRENGTHS 1. Communicative. 2. Cooperative. PROBLEMS 1. Chronic dysphoric symptoms. 2. Chronic chemical dependency. 3. Poor social support system. DISCHARGE CRITERIA This will be contingent upon the patient's ability to show resolution of her depression and anxiety and her ability to stay safe to herself, particularly after discharge from the hospital. Dictated by... Em Casanova M.D. KARELY/moo Unit #: [id number] #: [id number] Patient: NATANAEL KHAN TD: 09/17/2016 23:03 JOB #: [id number] PSYCHIATRIC ASSESSMENT Page 1 of 1 X Em Casanova MD X PSYCHIATRIC ASSESSMENT
--- NOTE | ~2016-09-16 | PN ---
Unit #: [id number] #: [id number] Patient: NATANAEL OLVERA [id number] [facility] [address] [place] [address] [id number] I MR#: [id number] NAME: NATANAEL OLVERA ROOM: P207 Age: 41 Sex: F Admission Date: 09/17/2016 : 1975 Attending Physician: Em Casanova M.D. Admitting Physician: Em Casanova M.D. Primary Care Physician: Primary Care Physician Johana AUSTIN PROGRESS NOTES DATE OF SERVICE: 09/24/2016 SUBJECTIVE Ms. Olvera is a 41-year-old white female, who was seen today and chart was reviewed and the case was discussed with the staff. She has been doing fairly well and appears to be showing improvement in her mood and functioning and has not shown any agitation or aggression. She has been cooperative with the treatment recommendations and has been taking the medications and tolerating them fairly well. MENTAL STATUS EXAMINATION Middle-aged white female, who was casually dressed with fair personal hygiene, appears to be in no acute distress or discomfort. She was awake and alert with intact orientation. Her mood was anxious with a congruent affect. She denies any suicidal or homicidal ideation. Her insight and judgment remain slightly impaired. TREATMENT PLAN 1. We will continue her on her current medications and treatment protocol. We will monitor her response to the medications and make further adjustments as needed. 2. We will continue to follow up. Dictated by... Marcelo Shirley/davidl TD: 09/24/2016 13:52 JOB #: [id number] [facility] PROGRESS NOTES Page 1 of 1 X Em Casanova MD PROGRESS NOTE
[2016-09-18 09:40] LABS: BASOPHIL% 0.2 % (0-2.5); EOSINOPHIL# 0.1 X10e3 (0-0.7); EOSINOPHIL% 1.2 % (0.0-7.0); HEMATOCRIT 41.2 % (35.0-45.0); HEMOGLOBIN 13.6 gm/dL (12.0-16.0); LYMPHOCYTE# 1.4 X10e3 (1.0-3.5); LYMPHOCYTE% 31.9 % (17.0-45.0); MEAN CELL VOLUME 100.6 FL (83-96); MEAN CORPUSCULAR HEMOGLOBIN 33.3 PG (28-34); MEAN CORPUSCULAR HGB CONC 33.1 g/dL (30-36); MEAN PLATELET VOLUME 8.1 FL (6.5-11.5); MONOCYTE# 0.4 X10e3 (0-1.0); MONOCYTE% 8.1 % (3.0-12.0); NEUTROPHIL# 2.6 X10e3 (1.5-7.1); NEUTROPHIL% 58.6 % (40-75); PLATELET COUNT 155 X10e3 (140-420); RED CELL DISTRIBUTION WIDTH 14.6 % (11.0-15.5); WHITE BLOOD COUNT 4.4 X10e3 (4.0-10.5)
[2016-09-18 09:52] LABS: DIFF IND NO
[2016-09-18 10:31] LABS: ALBUMIN SERUM 3.7 g/dL (3.5-5.0); BILIRUBIN,TOTAL 0.5 mg/dL (0.2-2.0); CALCIUM SERUM 8.9 mg/dL (8.4-10.2); CREATININE SERUM 0.6 mg/dL (0.6-1.4); POTASSIUM 3.7 mmol/L (3.5-5.1); PROTEIN TOTAL SERUM 6.6 g/dL (6.0-8.3)
[2016-09-19 14:47] LABS: AMPHETAMINE NEG (NEG); BARBITURATES NEG (NEG); BENZODIAZEPINES POS (NEG); COCAINE NEG (NEG); MARIJUANA NEG (NEG); OPIATES NEG (NEG); TRICYCLIC ANTIDEPRESSANTS NEG (NEG); U METHADONE NEG (NEG)
[2016-09-19 15:16] LABS: URINE APPEARANCE CLOUDY; URINE BILIRUBIN NEG (NEG); URINE BLOOD NEG (NEG); URINE COLOR DK YELLOW; URINE GLUCOSE 100 MG/DL (NEG); URINE KETONE NEG (NEG); URINE LEUKOCYTE ESTERASE 2+ (NEG); URINE NITRATE NEG (NEG); URINE PH 6.5 (5-8); URINE PROTEIN NEG (NEG); URINE SPECIFIC GRAVITY 1.019 (1.003-1.035)
[2016-09-19 15:22] LABS: URINE BACTERIA AUWI 1+ (NEGATIVE); URINE SQUAMOUS EPITHELIAL CELL MOD /[HPF]
[2016-09-19 15:47] LABS: URBCS1 AUWI 0-2 /[HPF] (0-2)
== END 2016-09-25 11:18 | disposition home or self-care (01) | DRG 897 ==
LOC: P2S 09-17 00:57
PROVIDERS: Psychiatry & Neurology Psychiatry
PROC: HZ2ZZZZ Detoxification Services for Substance Abuse Treatment (ICD-10-PCS; principal; 2016-09-17)
DX: F10.239 Alcohol dependence with withdrawal, unspecified (principal); F10.24 Alcohol dependence with alcohol-induced mood disorder; E28.2 Polycystic ovarian syndrome
CPT/HCPCS: 80053; 80307; 81003; 84703; 85025; 86592